=== PATIENT | female | born 1950 | race Caucasian/White ===

== ENCOUNTER 2023-02-12 20:53 | Inpatient (IN) | payer MEDICARE, OTHER ==
[~2023-02-12] VITALS: Ht 170.1 cm; Wt 64.5 kg
[2023-02-12] MEDS ORDERED: NS IV 1000 ML 1,000 ML IV STA (21:09)
[2023-02-12] MEDS ORDERED: dilTIAZem INJ 25 MG/5 ML VIAL IVP STA (21:09)
[2023-02-12 21:11] LABS: BASOPHILS % (AUTO) 1 % (0-10); EOSINOPHILS # (AUTO) 0.4 10^3/uL (0.0-0.3); EOSINOPHILS % (AUTO) 4 % (0-10); HEMATOCRIT 44 % (35-52); HEMOGLOBIN 14.4 g/dL (11.5-16.0); LYMPHOCYTES # (AUTO) 2.3 10^3/uL (1.0-4.0); LYMPHOCYTES % (AUTO) 28 % (12-44); MEAN CORPUSCULAR HEMOGLOBIN 31 pg (25-34); MEAN CORPUSCULAR HGB CONC 32 g/dL (32-36); MEAN CORPUSCULAR VOLUME 95 fL (80-99); MEAN PLATELET VOLUME 9.3 fL (9.0-12.2); MONOCYTES # (AUTO) 0.7 10^3/uL (0.0-1.0); MONOCYTES % (AUTO) 8 % (0-12); NEUTROPHILS # (AUTO) 4.8 10^3/uL (1.8-7.8); NEUTROPHILS % (AUTO) 59 % (42-75); PLATELET COUNT 355 10^3/uL (130-400); WHITE BLOOD COUNT 8.2 10^3/uL (4.3-11.0)
[2023-02-12] MEDS ORDERED: ENOXAPARIN 80 MG/0.8 ML SYRINGE SC STA (21:30)
[2023-02-12] MEDS ORDERED: dilTIAZem IV FOR DRIP 125 MG in NS (IVPB) 100 ML 100 ML IV STA (21:30)
--- NOTE | 2023-02-12 21:30 | ED Cardiac General ---
History of Present Illness General Chief Complaint: Cardiac/General Problems Stated Complaint: HEART PALPS Source: patient History of Present Illness Date Seen by Provider: Feb 12, 2023 Time Seen by Provider: 20:55 Initial Comments 72-year-old female presenting with complaints of heart palpitations. She states that approximately a month ago around January 12 she had received a fourth COVID shot. Approximately 2 weeks after that she started having heart palpitations an d shortness of breath. She has been seen at the [facility] and they did do thyroid studies that were normal. They had not caught anything on heart tracings. She had symptoms started up again tonight and she is still waiting to hear on follow-up with cardiology. Timing/Duration: other (intermittent over the last 10 to 14 days) Severity: moderate Activities at Onset: none Prior CP/Workup: no prior cardiac workup NTG SL NETWORK SYSTEMS ADMINISTRATOR: No ASA po NETWORK SYSTEMS ADMINISTRATOR: No Associated Systoms: No Chest Pain, No Cough, No Diaphoresis, No Fever/Chills, No Headaches, No Loss of Appetite, No Malaise, No Nausea/Vomiting, No Rash, No Seizure, No Shortness of Air, No Syncope, No Weakness Allergies and Home Medications Allergies Coded Allergies: loperamide (Verified Allergy, Mild, Rash, 02/12/23) Patient Home Medication List Home Medication List Reviewed: Yes Review of Systems Review of Systems Constitutional: chills; No fever EENTM: No Symptoms Reported Respiratory: No Symptoms Reported Cardiovascular: See HPI, Irregular Heart Rate, Palpitations Gastrointestinal: Denies Nausea, Denies Vomiting Genitourinary: No Symptoms Reported Musculoskeletal: no symptoms reported Skin: no symptoms reported Psychiatric/Neurological: No Symptoms Reported Physical Exam Vital Signs Vital Signs - First Documented 02/12/23 21:19 Pulse 161 B/P (MAP) 167/92 Capillary Refill : Height, Weight, BMI Height: '" Weight: lbs. oz. kg; BMI Method: General Appearance: No Apparent Distress, WD/WN Respiratory: Chest Non Tender, Lungs Clear, Normal Breath Sounds, No Accessory Muscle Use, No Respiratory Distress Cardiovascular: No Murmur, Normal Peripheral Pulses, Irregularly Irregular, Tachycardia Gastrointestinal: Normal Bowel Sounds, No Pulsatile Mass, Non Tender, Soft Rectal: Deferred Extremity: Normal Capillary Refill, Normal Inspection, No Pedal Edema Neurologic/Psychiatric: Alert, Oriented x3 Skin: Normal Color, Warm/Dry Progress/Results/Core Measures Results/Orders Lab Results Laboratory Tests Test 02/12/23 21:02 Range/Units White Blood Count 8.2 4.3-11.0 10^3/uL Red Blood Count 4.67 3.80-5.11 10^6/uL Hemoglobin 14.4 11.5-16.0 g/dL Hematocrit 44 35-52 % Mean Corpuscular Volume 95 80-99 fL Mean Corpuscular Hemoglobin 31 25-34 pg Mean Corpuscular Hemoglobin Concent 32 32-36 g/dL Red Cell Distribution Width 13.1 10.0-14.5 % Platelet Count 355 130-400 10^3/uL Mean Platelet Volume 9.3 9.0-12.2 fL Immature Granulocyte % (Auto) 0 % Neutrophils (%) (Auto) 59 42-75 % Lymphocytes (%) (Auto) 28 12-44 % Monocytes (%) (Auto) 8 0-12 % Eosinophils (%) (Auto) 4 0-10 % Basophils (%) (Auto) 1 0-10 % Neutrophils # (Auto) 4.8 1.8-7.8 10^3/uL Lymphocytes # (Auto) 2.3 1.0-4.0 10^3/uL Monocytes # (Auto) 0.7 0.0-1.0 10^3/uL Eosinophils # (Auto) 0.4 H 0.0-0.3 10^3/uL Basophils # (Auto) 0.0 0.0-0.1 10^3/uL Immature Granulocyte # (Auto) 0.0 0.0-0.1 10^3/uL Prothrombin Time 12.2 12.2-14.7 SEC INR Comment 0.9 0.8-1.4 Activated Partial Thromboplast Time 24 24-35 SEC Sodium Level 142 135-145 MMOL/L Potassium Level 3.5 L 3.6-5.0 MMOL/L Chloride Level 102 98-107 MMOL/L Carbon Dioxide Level 30 21-32 MMOL/L Anion Gap 10 5-14 MMOL/L Blood Urea Nitrogen 13 7-18 MG/DL Creatinine 0.68 0.60-1.30 MG/DL Estimat Glomerular Filtration Rate 94 BUN/Creatinine Ratio 19 Glucose Level 117 H 70-105 MG/DL Calcium Level 9.7 8.5-10.1 MG/DL Corrected Calcium 9.7 8.5-10.1 MG/DL Magnesium Level 2.2 1.6-2.4 MG/DL Total Bilirubin 0.6 0.1-1.0 MG/DL Aspartate Amino Transf (AST/SGOT) 19 5-34 U/L Alanine Aminotransferase (ALT/SGPT) 17 0-55 U/L Alkaline Phosphatase 137 H 40-136 U/L Troponin I < 0.30 <0.30 NG/ML Pro-B-Type Natriuretic Peptide 355.7 H <125.0 PG/ML Total Protein 8.3 H 6.4-8.2 GM/DL Albumin 4.0 3.2-4.5 GM/DL Lipase 30 8-78 U/L My Orders Orders - KIRSTEN BAGLEY MD Cbc And Automated Diff (02/12/23 20:58) Magnesium (02/12/23 20:58) Ekg Tracing (02/12/23 20:58) Comprehensive Metabolic Panel (02/12/23 20:58) Protime With Inr (02/12/23 20:58) Partial Thromboplastin Time (02/12/23 20:58) O2 (02/12/23 20:58) Monitor-Rhythm Ecg Trace Only (02/12/23 20:58) Ed Iv/Invasive Line Start (02/12/23 20:58) Lipase (02/12/23 20:58) Troponin I Fs (02/12/23 20:58) Probnp Fs (02/12/23 20:58) Ns Iv 1000 Ml (Ns Iv 1000 Ml) (02/12/23 21:09) Diltiazem Injection (Diltiazem Injection (02/12/23 21:09) Ns (Ivpb) 100 Ml (S... W/Diltiazem Iv Fo (02/12/23 21:30) Ekg Tracing (02/12/23 21:30) Enoxaparin Injection (Enoxaparin Injecti (02/12/23 21:30) Diltiazem Drip Pre-Mix (Diltiazem Drip P (02/12/23 21:39) Ed Admission (Communication) (02/12/23 22:01) Chest 1 View Ap/Pa Only (02/12/23 22:18) Vital Signs/I&O 02/12/23 02/12/2323 21:19 21:43 21:58 Pulse 161 141 150 B/P (MAP) 167/92 148/79 149/77 Blood Pressure Mean: 117 Progress Progress Note #1: Progress Note Differential diagnosis includes atrial fibrillation, dehydration, electrolyte imbalance, myocardial infarction, congestive heart failure, cardiac arrhythmia. Establish peripheral IV access and send labs for complete blood count, comprehensive metabolic profile, magnesium, lipase, troponin, proBNP, pro time, INR, PTT. Urinalysis to look for signs of infection and dehydration. Electrocardiogram to look for signs of ischemia. Placed on cardiac telemetry monitoring my initial interpretation shows narrow complex tachycardia with irregularity and 150 to 160 bpm. Ordered diltiazem 10 mg IV bolus to try and help with tachycardia and see if this might be atrial fibrillation. Ordered normal saline 1 L IV fluid bolus for hydration. Progress Note #2: Time: 21:33 Progress Note After the 10 mg IV bolus of diltiazem her heart rate did slow to around 100 bpm but showed more of an irregular rhythm concerning for atrial flutter. Her blood pressure remained stable and she was not having any hypotension. Her complete blood count did not show any acute process. Her comprehensive metabolic profile did not show any acute electrolyte significant abnormality. She had a negative troponin less than 0.3. She also had a normal proBNP level. Magnesium was nor mal at 2.1. Her coagulation factors were normal. A diltiazem drip was ordered to try and help control her heart rate and rhythm better. Will check with the patient and spouse about admission to [place]. Anticipate continuing the diltiazem until she is in a steady sinus rhythm. Have cardiology evaluate her for her cardiac arrhythmia. Ordered Lovenox 1 mg/kg or 70 mg SC x 1 for anticoagulation with her having atrial flutter at times 2200 discussed with [facility] resident Dr. Flores. She is on-call for Dr. Rivas for the [facility] hospitalist. Reviewed patient presentation and history of not having any prior cardiac problems. Now exhibiting some arrhythmia and at times showed some atrial flutter. She did have rapid ventricular response which had improved with diltiazem and is currently on a diltiazem drip. She remains hemodynamically stable and has not been hypotensive. Other labs did not show any acute electrolyte abnormality or anemia to indicate a cause for her arrhythmia and atrial flutter. She was improved with the diltiazem drip and tolerating it well. She was accepted as an admission to the ICU with her being on the diltiazem drip. We will consult cardiology in am for her arrhythmia and episodes of atrial flutter. Initial ECG Impression Date: Feb 12, 2023 Initial ECG Impression Time: 21:02 Initial ECG Rate: 156 Initial ECG Rhythm: A Fib/Flutter Initial ECG Comparisson: No Previous ECG Available Comment My initial interpretation and review the electrocardiogram shows atrial flutter with heart rate of 156 bpm. Short MI interval of 97 ms. She has some ST depression but no ST elevation. QT interval 265 ms with a QTc interval 353 ms. There is no prior tracing available for comparison. EKG : EKG Time: 21:26 Rate: 93 Rhythm: A Fib/Flutter ECG Comparisson: Changed (Improved heart rate compared to the tracing from 210 tonight) Comment On my initial interpretation and review the electrocardiogram shows atrial flutter with irregular heartbeat and 93 bpm. MI interval [address] elevation. QT interval 318 ms with a QTc interval 396 ms. She has improved heart rate from her initial tracing at 2102 tonight. Diagnostic Imaging Diagonstic Imaging: Xray Plain Films/CT/US/NM/MRI: chest Comments My personal review and interpretation of the 1 view chest x-ray she has no acute infiltrate or effusion. Reviewed: Reviewed by Me Critical Care Note Critical Care Total Time (minutes) 45 minutes Progress I spent at least 45 minutes of critical care time with the patient. Time excludes separately billable procedures. Time was spent obtaining history from the patient and spouse, ordering tests and reviewing results, ordering interventions and reviewing response, discussion with consultants, documentation in the chart. Patient was at risk of cardiovascular compromise and collapse due to her cardiac arrhythmia and required my immediate direct care and intervention to help stabilize her condition and arrange for transfer to higher level of care. Departure Communication (Admissions) Time/Spoke to Admitting Phy: 22:00 2200 discussed with [facility] resident Dr. Flores. She is on-call for Dr. Rivas for the [facility] hospitalist. Reviewed patient presentation and history of not having any prior cardiac problems. Now exhibiting some arrhythmia and at times showed some atrial flutter. She did have rapid ventricular response which had improved with diltiazem and is currently on a diltiazem drip. She remains hemodynamically stable and has not been hypotensive. Other labs did not show any acute electrolyte abnormality or anemia to indicate a cause for her arrhyt hmia and atrial flutter. She was improved with the diltiazem drip and tolerating it well. She was accepted as an admission to the ICU with her being on the diltiazem drip. We will consult cardiology in am for her arrhythmia and episodes of atrial flutter. Impression Primary Impression: Atrial fibrillation with rapid ventricular response Disposition: 30 STILL A PATIENT Condition: Critical Admissions Decision to Admit Reason: Admit from ER (General) Decision to Admit/Date: Feb 12, 2023 Time/Decision to Admit Time: 22:00 KIRSTEN BAGLEY MD Feb 12, 2023 21:30
[2023-02-12 21:35] LABS: CHLORIDE 102 MMOL/L (98-107); POTASSIUM 3.5 MMOL/L (3.6-5.0); SODIUM 142 MMOL/L (135-145)
[2023-02-12 21:36] LABS: ALANINE AMINOTRANSFERASE 17 U/L (0-55); ALKALINE PHOSPHATASE 137 U/L (40-136); BILIRUBIN,TOTAL 0.6 MG/DL (0.1-1.0); BUN/CREATININE RATIO 19; CALCIUM 9.7 MG/DL (8.5-10.1); CARBON DIOXIDE 30 MMOL/L (21-32); CREATININE SERUM 0.68 MG/DL (0.60-1.30); GFR ESTIMATED 94; GLUCOSE 117 MG/DL (70-105); LIPASE 30 U/L (8-78); MAGNESIUM 2.2 MG/DL (1.6-2.4); TOTAL PROTEIN 8.3 GM/DL (6.4-8.2)
[2023-02-12] MEDS ORDERED: dilTIAZem DRIP PRE-MIX 125 ML IV ONE (21:39)
[2023-02-12 21:40] LABS: INR 0.9 (0.8-1.4); PROTHROMBIN TIME PATIENT 12.2 SEC (12.2-14.7)
[2023-02-12] MEDS ORDERED: diphenhydrAMINE 25 MG TABLET PO PRN (23:45)
[2023-02-12] MEDS ORDERED: dilTIAZem DRIP 125 MG/125 ML DRIP IV SCH (23:45)
[2023-02-12] MEDS ORDERED: NS IV 500 ML 500 ML IV PRN (23:45)
[2023-02-12] MEDS ORDERED: ACETAMINOPHEN 325 MG TABLET PO PRN (23:45)
[2023-02-12] MEDS ORDERED: LACTULOSE SYRUP 10GM/15ML 30ML UDC PO PRN (23:45)
[2023-02-12] MEDS ORDERED: BISACODYL 10 MG SUPPOSITORY PR PRN (23:45)
[2023-02-12] MEDS ORDERED: ANTACID SUSPENSION 30 ML UDC PO PRN (23:45)
[2023-02-12] MEDS ORDERED: dilTIAZem IV FOR DRIP 125 MG in NS (IVPB) 100 ML 100 ML IV SCH (23:45)
[2023-02-12] MEDS ORDERED: ONDANSETRON INJECTION 4 MG/2 ML (SDV) IV PRN (23:45)
[2023-02-12] MEDS ORDERED: MELATONIN 3 MG TABLET PO PRN (23:45)
[2023-02-12] MEDS ORDERED: diphenhydrAMINE INJ 50 MG/ML VIAL IVP PRN (23:45)
[2023-02-12] MEDS ORDERED: ONDANSETRON 4 MG ORAL DISSOLVE TABLET PO PRN (23:45)
[2023-02-13 00:45] VITALS: BP 91/56
[2023-02-13 04:28] LABS: BASOPHILS % (AUTO) 0 % (0-10); EOSINOPHILS # (AUTO) 0.2 10^3/uL (0.0-0.3); EOSINOPHILS % (AUTO) 3 % (0-10); HEMATOCRIT 40 % (35-52); LYMPHOCYTES # (AUTO) 1.6 10^3/uL (1.0-4.0); LYMPHOCYTES % (AUTO) 23 % (12-44); MEAN CORPUSCULAR HEMOGLOBIN 31 pg (25-34); MEAN CORPUSCULAR HGB CONC 33 g/dL (32-36); MEAN CORPUSCULAR VOLUME 93 fL (80-99); MEAN PLATELET VOLUME 9.2 fL (9.0-12.2); MONOCYTES # (AUTO) 0.6 10^3/uL (0.0-1.0); MONOCYTES % (AUTO) 8 % (0-12); NEUTROPHILS # (AUTO) 4.5 10^3/uL (1.8-7.8); NEUTROPHILS % (AUTO) 66 % (42-75); PLATELET COUNT 321 10^3/uL (130-400); WHITE BLOOD COUNT 6.9 10^3/uL (4.3-11.0)
[2023-02-13 04:37] LABS: ALBUMIN 3.6 GM/DL (3.2-4.5)
[2023-02-13 04:38] LABS: POTASSIUM 3.7 MMOL/L (3.6-5.0)
[2023-02-13 04:39] LABS: CALCIUM 8.7 MG/DL (8.5-10.1)
[2023-02-13 04:40] LABS: TOTAL PROTEIN 6.9 GM/DL (6.4-8.2)
[2023-02-13 04:42] LABS: BILIRUBIN,TOTAL 0.8 MG/DL (0.1-1.0)
[2023-02-13 04:43] LABS: PHOSPHORUS 3.3 MG/DL (2.3-4.7)
[2023-02-13 04:44] LABS: CREATININE SERUM 0.72 MG/DL (0.60-1.30)
[2023-02-13 04:47] LABS: MAGNESIUM 1.9 MG/DL (1.6-2.4)
[2023-02-13] MEDS: POTASSIUM CL 10MEQ/50ML IVPB 50 ML IV SCH ×3 (04:53→06:00)
[2023-02-13] MEDS: POTASSIUM CHLORIDE 20 MEQ TABLET PO SCH (04:53)
[2023-02-13] MEDS: MAGNESIUM 1 GM/100 ML IVPB 100 ML IV SCH ×3 (04:53→08:16)
--- NOTE | 2023-02-13 07:30 | Diagnostic Imaging Report ---
INDICATION: palpitations TECHNIQUE: Single view chest 10:15 PM CORRELATION STUDY: None FINDINGS: The heart size, mediastinal configuration and pulmonary vascularity are within normal limits. Lung crum hyperinflated but overall clear. IMPRESSION: 1. Negative appearing single view chest. Dictated by: Dictated on workstation # [id number]
[2023-02-13] MEDS ORDERED: meTOprolol TARTRATE (IR) 50 MG TABLET PO ONE (08:15)
[2023-02-13] MEDS ORDERED: meTOprolol INJECTION 5 MG/5 ML VIAL IV ONE (08:15)
--- NOTE | 2023-02-13 08:30 | Consultation-Cardiology ---
HPI-Cardiology Cardiology Consultation Date of Consultation 02/13/23 Date of Admission Time Seen by Provider: 08:27 Indication: Palpitation HPI 72-year-old lady with no significant past medical history has been having recurrent palpitation for the past 2 to 3 weeks. On and off lasting for few minutes then it became worse. Patient was seen at the urgent care last week then came into the emergency room yesterday and she was noted to be tachycardic with questionable atrial flutter. She denied any chest pain but has been having frequent episodes of palpitation on and off. She denied any smoking no significant caffeine use Home Medications & Allergies Allergies: Coded Allergies: loperamide (Verified Allergy, Mild, Rash, 02/12/23) Home Medication List Reviewed: Yes [id number] Hx Patient Social History Marital Status: Employed/Student: retired Smoking Status: Never a Smoker Alcohol Use?: No Past Medical History Discussed below Family Medical History Significant Family History: No Pertinent Family Hx Review of Systems-General Review of Systems Constitutional: chills; No fever EENTM: see HPI, no symptoms reported Respiratory: no symptoms reported, see HPI Cardiovascular: see HPI; No chest pain, No edema, No Hx of Intervention; palpitations; No syncope, No vascular heart diseas, No other Gastrointestinal: no symptoms reported, see HPI Genitourinary: no symptoms reported, see HPI Musculoskeletal: no symptoms reported Skin: no symptoms reported Psychiatric/Neurological: No Symptoms Reported Reviewed Test Results Reviewed Test Results Lab Laboratory Tests Test 02/12/23 21:02 02/13/23 04:05 Range/Units White Blood Count 8.2 6.9 4.3-11.0 10^3/uL Red Blood Count 4.67 4.23 3.80-5.11 10^6/uL Hemoglobin 14.4 13.0 11.5-16.0 g/dL Hematocrit 44 40 35-52 % Mean Corpuscular Volume 95 93 80-99 fL Mean Corpuscular Hemoglobin 31 31 25-34 pg Mean Corpuscular Hemoglobin Concent 32 33 32-36 g/dL Red Cell Distribution Width 13.1 13.0 10.0-14.5 % Platelet Count 355 321 130-400 10^3/uL Mean Platelet Volume 9.3 9.2 9.0-12.2 fL Immature Granulocyte % (Auto) 0 0 % Neutrophils (%) (Auto) 59 66 42-75 % Lymphocytes (%) (Auto) 28 23 12-44 % Monocytes (%) (Auto) 8 8 0-12 % Eosinophils (%) (Auto) 4 3 0-10 % Basophils (%) (Auto) 1 0 0-10 % Neutrophils # (Auto) 4.8 4.5 1.8-7.8 10^3/uL Lymphocytes # (Auto) 2.3 1.6 1.0-4.0 10^3/uL Monocytes # (Auto) 0.7 0.6 0.0-1.0 10^3/uL Eosinophils # (Auto) 0.4 H 0.2 0.0-0.3 10^3/uL Basophils # (Auto) 0.0 0.0 0.0-0.1 10^3/uL Immature Granulocyte # (Auto) 0.0 0.0 0.0-0.1 10^3/uL Prothrombin Time 12.2 12.2-14.7 SEC INR Comment 0.9 0.8-1.4 Activated Partial Thromboplast Time 24 24-35 SEC Sodium Level 142 141 135-145 MMOL/L Potassium Level 3.5 L 3.7 3.6-5.0 MMOL/L Chloride Level 102 106 98-107 MMOL/L Carbon Dioxide Level 30 27 21-32 MMOL/L Anion Gap 10 8 5-14 MMOL/L Blood Urea Nitrogen 13 12 7-18 MG/DL Creatinine 0.68 0.72 0.60-1.30 MG/DL Estimat Glomerular Filtration Rate 94 90 BUN/Creatinine Ratio 19 17 Glucose Level 117 H 108 H 70-105 MG/DL Calcium Level 9.7 8.7 8.5-10.1 MG/DL Corrected Calcium 9.7 9.0 8.5-10.1 MG/DL Magnesium Level 2.2 1.9 1.6-2.4 MG/DL Total Bilirubin 0.6 0.8 0.1-1.0 MG/DL Aspartate Amino Transf (AST/SGOT) 19 18 5-34 U/L Alanine Aminotransferase (ALT/SGPT) 17 18 0-55 U/L Alkaline Phosphatase 137 H 104 40-136 U/L Troponin I < 0.30 <0.30 NG/ML Pro-B-Type Natriuretic Peptide 355.7 H <125.0 PG/ML Total Protein 8.3 H 6.9 6.4-8.2 GM/DL Albumin 4.0 3.6 3.2-4.5 GM/DL Lipase 30 8-78 U/L Phosphorus Level 3.3 2.3-4.7 MG/DL Physical Exam Physical Exam Vital Signs Vital Signs - First Documented Capillary Refill : Less Than 3 Seconds Height, Weight, BMI Height: '" Weight: lbs. oz. kg; 22.70 BMI Method: General Appearance: No Apparent Distress, WD/WN Eyes: Bilateral Eye Normal Inspection, Bilateral Eye PERRL, Bilateral Eye EOMI HEENT: PERRL/EOMI, TMs Normal, Normal ENT Inspection, Pharynx Normal, Moist Mucous Membranes Neck: Full Range of Motion, Normal Inspection, Non Tender, Supple, Carotid Bruit Respiratory: Chest Non Tender, Lungs Clear, Normal Breath Sounds, No Accessory Muscle Use, No Respiratory Distress Cardiovascular: Regular Rate, Rhythm, No Murmur, Normal Peripheral Pulses, Systolic Murmur, Tachycardia Gastrointestinal: Normal Bowel Sounds, No Pulsatile Mass, Non Tender, Soft Rectal: Deferred Back: Normal Inspection, No CVA Tenderness, No Vertebral Tenderness Extremity: Normal Capillary Refill, Normal Inspection, No Pedal Edema Neurologic/Psychiatric: Alert, Oriented x3 Skin: Normal Color, Warm/Dry Lymphatic: No Adenopathy A/P-Cardiology Admission Diagnosis Recurrent palpitation Paroxysmal atrial flutter Paroxysmal atrial tachycardia Assessment/Plan Recurrent palpitation, probably secondary to tachycardia, unknown etiology Paroxysmal atrial tachycardia, questionable paroxysmal atrial flutter. No signs of fibrillation. Maintained on Cardizem drip and heart rate is better still borderline tachycardic. I will switch the Cardizem to oral and start metoprolol 50 mg twice daily Evaluate 2D echo Continue on Lovenox for now. [id number] score 3. Patient will need to be on oral anticoagulation until atrial flutter and or atrial fibrillation are completely excluded Clinical Quality Measures AMI/AHF: ASA po Prior to arrival: VINNIE Shah MD Feb 13, 2023 08:30
[2023-02-13] MEDS: ENOXAPARIN 80 MG/0.8 ML SYRINGE SC SCH ×2 (09:07→21:12)
[2023-02-13] MEDS: dilTIAZem ER 120 MG CAPSULE PO SCH (09:07)
[2023-02-13] MEDS: meTOprolol TARTRATE (IR) 50 MG TABLET PO SCH ×2 (09:08→21:12)
[2023-02-13] MEDS: DOCUSATE SODIUM 100 MG CAPSULE PO SCH ×2 (09:10→19:37)
--- NOTE | 2023-02-13 09:51 | History & Physical-Hospitalist ---
TORIBIO LOZANO MD, RESIDENT 02/13/23 0951: History of Present Illness HPI/Chief Complaint CC: Palpitations Patient is a 72-year-old female with no past medical history who presented with palpitations. She states that her palpitations began approximately a month ago on January 12 when she had received her fourth COVID shot. She noted that she had felt ill for couple of days after receiving the shot and did have palpitations that lasted for couple of hours prior to resolving. Since then she would occasionally have episodes of palpitations that come and go. She denies any chest pain during these episodes. She did go to urgent care at 1 point whe re she had an EKG done which was normal. She did note that yesterday the palpitations started again and she was noting some shortness of breath with this thus she presented to the ED for further evaluations. She otherwise denies any other symptoms during this time. In the ED it was noted that patient was in atrial fibrillation with RVR requiring a diltiazem drip. Despite being on the drip, her rhythms did not remain consistent and thus she was transferred here for further management. Does not take any medications at home other than Flonase, B6 and vitamin D. She is a non-smoker, denies any alcohol or drug use. Source: patient Exam Limitations: no limitations Date Seen 02/13/23 Time Seen by a Provider: 07:40 Attending Physician Kathy Briceño Aprn PCP Admitting Physician: Maria Luz Rivas DO Attending Physician: Maria Luz Rivas DO Referring Physician Date of Admission Feb 12, 2023 at 23:23 Home Medications & Allergies Home Medications Reviewed patient Home Medication Reconciliation performed by pharmacy medication reconciliations surgery technician and/or nursing. Patients Allergies have been reviewed. Allergies Allergies Coded Allergies loperamide (Verified Allergy, Mild, Rash, 02/12/23) Past Lwqegxt-Dqajxn-Zsdwka Hx Patient Social History Marrital Status: Employed/Student: retired Tobacco Use?: No Smoking Status: Never a Smoker Smokeless Tobacco Frequency: Never a User Use of E-Cig and/or Vaping dev: No Substance use?: No Alcohol Use?: No Pt feels they are or have been: No Immunizations Up To Date First/Initial COVID19 Vaccinat: date ? Second COVID19 Vaccination Chintan: date ? Current Status status: No status: No Advance Directives: No Communicates: Verbally Primary Language: Zimbabwean Preferred Spoken Language: Zimbabwean Is interpretation needed?: No Implanted or Applied Medical D: None Family Medical History No Pertinent Family Hx Dad of stroke at age 52, hypertension in father Review of Systems Constitutional: No chills, No dizziness EENTM: No nose congestion Respiratory: No cough, No dyspnea on exertion, No short of breath Cardiovascular: No chest pain, No edema; palpitations Gastrointestinal: No abdominal pain, No constipation, No diarrhea, No nausea, No vomiting Genitourinary: No dysuria Musculoskeletal: No no symptoms reported Skin: No no symptoms reported Psychiatric/Neurological: Anxiety Physical Exam Physical Exam Vital Signs Vital Signs - First Documented Capillary Refill : Less Than 3 Seconds Height, Weight, BMI Height: '" Weight: lbs. oz. kg; 22.70 BMI Method: General Appearance: No Apparent Distress HEENT: Normal ENT Inspection, Pharynx Normal Neck: Full Range of Motion, Non Tender, Supple Respiratory: Chest Non Tender, Lungs Clear, Normal Breath Sounds, No Accessory Muscle Use, No Respiratory Distress Cardiovascular: No Edema, No Murmur, Irregularly Irregular, Tachycardia Gastrointestinal: Normal Bowel Sounds, Non Tender, Soft Extremity: No Pedal Edema Neurologic/Psychiatric: Alert, Oriented x3 Skin: Normal Color, Warm/Dry Results Results/Procedures Labs Laboratory Tests 02/12/23 21:02 02/13/23 04:05 Patient resulted labs reviewed. Imaging: Reviewed Imaging Films, Reviewed Imaging Report Imaging Chest x-ray (02/12/2023): IMPRESSION: 1. Negative appearing single view chest. Assessment/Plan Admission Diagnosis Patient is a 72-year-old female with no past medical history who presented with palpitations consistent with atrial fibrillation with RVR. Admission Status: Inpatient Order (span 2 midnights) Reason for Inpatient Admission: A-fib with RVR requiring diltiazem drip and thus ICU admission Diagnosis/Problems Diagnosis/Problems (1) Atrial fibrillation with rapid ventricular response Status: Acute Assessment & Plan: Patient is quite healthy and presented with atrial fibrillation with RVR. Is currently being managed on a diltiazem drip. Recent thyroid levels were normal. Lab work is within normal ranges. Plan: Cardiology consulted appreciate recommendations Continue diltiazem drip, planning to transition to oral today and have also started metoprolol Monitor on telemetry Once taken off the diltiazem drip, will move down to cardiac stepdown (2) Vitamin D deficiency Status: Chronic Assessment & Plan: Vitamin D deficiency, will continue home medication. Clinical Quality Measures AMI/AHF: ASA po Prior to arrival: Kiah MARIA LUZ RIVAS DO 02/13/231948: History of Present Illness HPI/Chief Complaint CC: AF RVR HPI: This is a 72yoWF clinic patient of [facility] who has no significant PMH who presented to the ER with chest pain and palpitations and found to have new onset AF RVR. Cardiology managing the AF and ECHO was ordered. Source: patient Exam Limitations: no limitations Past Kvfbblm-Agsxpu-Vssjgx Hx Patient Social History Marrital Status: Employed/Student: retired Smoking Status: Never a Smoker Review of Systems Constitutional: see HPI Cardiovascular: chest pain, palpitations Physical Exam Physical Exam General Appearance: No Apparent Distress, Chronically ill Eyes: Right Eye Normal Inspection, Right Eye PERRL HEENT: PERRL/EOMI, Normal ENT Inspection, Pharynx Normal, Moist Mucous Membranes Neck: Full Range of Motion, Normal Inspection, Non Tender Respiratory: Chest Non Tender, Lungs Clear, Normal Breath Sounds, No Accessory Muscle Use, No Respiratory Distress Cardiovascular: No Edema, No Gallop, No JVD, No Murmur, Normal Peripheral Pulses, Irregularly Irregular, Tachycardia Gastrointestinal: Normal Bowel Sounds, No Organomegaly, No Pulsatile Mass, Non Tender, Soft Back: Normal Inspection, No CVA Tenderness, No Vertebral Tenderness Extremity: Normal Capillary Refill, Normal Inspection, Normal Range of Motion, Non Tender, No Calf Tenderness, No Pedal Edema Neurologic/Psychiatric: Alert, Oriented x3, No Motor/Sensory Deficits, Normal Mood/Affect Skin: Normal Color, Warm/Dry Lymphatic: No Adenopathy Assessment/Plan Admission Diagnosis Assessment: New onset AF RVR Plan: OAC Rate control Admission Status: Inpatient Order (span 2 midnights) Reason for Inpatient Admission: AF RVR TORIBIO LOZANO MD, RESIDENT Feb 13, 2023 09:51 MARIA LUZ RIVAS DO Feb 13, 2023 19:49
--- NOTE | 2023-02-13 10:01 | Physical Therapy Evaluation ---
PT Evaluation-General Medical Diagnosis Admission Date Feb 12, 2023 at 23:23 Medical Diagnosis: A-fib with RVR Onset Date: Feb 12, 2023 Therapy Diagnosis Therapy Diagnosis: debility Precautions Precautions/Isolations: Standard Precautions Referral Physician: Evelyn Reason for Referral: Evaluation/Treatment Medical History Current History ER secondary to heart palpitations Reviewed History: Yes Social History Home: Single Level Current Living Status: Spouse Prior Prior Level of Function SCALE: Activities may be completed with or without assistive devices. 7-Befevbfznu-dluttyw completes the activity by him/herself with no assistance from a helper. 5-Set-up or Clean-up Assistance-helper sets up or cleans up; patient completes activity. [place] assists only prior to or following the activity. 4-Supervision or Touching Assistance-helper provides verbal cues and/or touching/steadying and/or contact guard assistance as patient completes activity. Assistance may be provided throughout the activity or intermittently. 3-Partial/Moderate Assistance-helper does LESS THAN HALF the effort. [place] lifts, holds or supports trunk or limbs, but provides less than half the effort. 2-Substantial/Maximal Assistance-helper does MORE THAN HALF the effort. [place] lifts or holds trunk or limbs and provides more than half the effort. 6-Snkydvkch-tsvixt does ALL the effort. Patient does none of the effort to complete the activity. Or, the assistance of 2 or more helpers is required for the patient to complete the activity. If activity was not attempted, code reason: 7-Patient Refused. 9-Not Applicable-not attempted and the patient did not perform the activity before the current illness, exacerbation or injury. 10-Not Attempted due to Environmental Limitations-(lack of equipment, weather restraints, etc.). 88-Not Attempted due to Medical Conditions or Safety Concerns. Bed Mobility: 6 Transfers (B,C,W/C): 6 Gait: 6 Stairs: 6 Indoor Mobility (Ambulation): Independent Stairs: Independent Prior Devices Use: None PT Evaluation-Current Subjective Patient agrees to therapy. Objective Patient Orientation: Normal For Age ROM/Strength ROM Lower Extremities bilateral LE WFL Strength Lower Extremities 4/5 grossly bilateral LE all planes Integumentary/Posture Bowel Incontinence: No Bladder Incontinence: No Posture WFL Neuromuscular (Tone, Coordination, Reflexes) grossly intact Sensory Vision: Functional Hearing: Functional Transfers Lying to Sitting/Side of Bed(Q: 6 Sit to Stand (QC): 6 Chair/Wmg-qi-Kxafq Xfer(QC): 6 Gait Mode of Locomotion: Walk Anticipated Mode of Locomotion: Walk Walk 10 feet (QC): 6 Gait Assistive Device: None Balance Sitting Static: Normal Sitting Dynamic: Normal Standing Static: Normal Standing Dynamic: Normal Assessment/Needs Patient is currently at independent LOF with all gross motor skills safely and does not require skilled PT intervention at this time. Rehab Potential: Fair PT Plan Treatment/Plan Treatment Plan: Discontinue PT Treatment Duration: Feb 12, 2023 Frequency: 1 time per week Estimated Hrs Per Day: .25 hour per day Patient and/or Family Agrees t: Yes Time Time In: 915 Time Out: 924 DATE: Feb 13, 2023 Total Billed Treatment Time: 9 Total Billed Treatment 1 visit EVLowC 9 min AUREA ARREAGA PT Feb 13, 2023 10:01
--- NOTE | 2023-02-13 10:10 | Occupational Therapy Eval ---
OT Evaluation-General/PLF Medical Diagnosis Admission Date Feb 12, 2023 at 23:23 Medical Diagnosis: A-fib with RVR Onset Date: Feb 12, 2023 Therapy Diagnosis Therapy Diagnosis: weakness Precautions Precautions/Isolations: Standard Precautions Referral Physician: Evelyn Patricia Reason: Evaluation/Treatment Medical History Additional Medical History 72-year-old female with no past medical history who presented with palpitations. She states that her palpitations began approximately a month ago on January 12 when she had received her fourth COVID shot. She noted that she had felt ill for couple of days after receiving the shot and did have pal pitations that lasted for couple of hours prior to resolving. Since then she would occasionally have episodes of palpitations that come and go. She denies any chest pain during these episodes. She did go to urgent care at 1 point where she had an EKG done which was normal. She did note that yesterday the palpitations started again and she was noting some shortness of breath with this thus she presented to the ED for further evaluations. She otherwise denies any other symptoms during this time. In the ED it was noted that patient was in atrial fibrillation with RVR requiring a diltiazem drip. Despite being on the d rip, her rhythms did not remain consistent and thus she was transferred here for further management. Current History NO current c/o or issues, Reviewed History: Yes Social History Home: Single Level Current Living Status: Spouse Entry Into Home: Stairs With Railing ADL-Prior Level of Function SCALE: Activities may be completed with or without assistive devices. 0-Rjmcpfbrcl-fstfcbv completes the activity by him/herself with no assistance from a helper. 5-Set-up or Clean-up Assistance-helper sets up or cleans up; patient completes activity. [place] assists only prior to or following the activity. 4-Supervision or Touching Assistance-helper provides verbal cues and/or touching/steadying and/or contact guard assistance as patient completes activity. Assistance may be provided throughout the activity or intermittently. 3-Partial/Moderate Assistance-helper does LESS THAN HALF the effort. [place] lifts, holds or supports trunk or limbs, but provides less than half the effort. 2-Substantial/Maximal Assistance-helper does MORE THAN HALF the effort. [place] lifts or holds trunk or limbs and provides more than half the effort. 3-Zsmbdkiju-opefny does ALL the effort. Patient does none of the effort to complete the activity. Or, the assistance of 2 or more helpers is required for the patient to complete the activity. If activity was not attempted, code reason: 7-Patient Refused. 9-Not Applicable-not attempted and the patient did not perform the activity before the current illness, exacerbation or injury. 10-Not Attempted due to Environmental Limitations-(lack of equipment, weather restraints, etc.). 88-Not Attempted due to Medical Conditions or Safety Concerns. Self Care: Independent Functional Cognition: Independent Drive Self: Yes OT Current Status Subjective Preferred name DALLIN Pain Numeric Pain Scale: 0-No Pain Mental Status/Objective Patient Orientation: Person, Place, Time, Situation Attachments: Telemetry Current Upper Extremity ROM BUE WFLs Upper Extremity Coordination BUE WLS for [facility] Upper Extremity Sensation intact Upper Extremity Strength +4/5 ADL-Treatment Eating (QC): 7 Oral Hygiene (QC): 5 (set up) Shower/Bathe Self (QC): 7 Upper Body Dressing (QC): 5 Lower Body Dressing (QC): 5 On/Off Footwear (QC): 5 Toileting Hygiene (QC): 5 Education OT Patient Education: Modified ADL techniques, Progress toward Goal/Update tx plan, Purpose of tx/functional activities, Reviewed precautions, Rehab process, Safety issues, Transfer techniques Teaching Recipient: Patient Teaching Methods: Demonstration, Discussion Response to Teaching: Return Demonstration OT Mcc Goals Cross Tie Cutter Goals 1=Demonstrate adherence to instructed precautions during ADL tasks. 2=Patient will verbalize/demonstrate understanding of assistive devices/modifications for ADL. 3=Patient will improve strength/tolerance for activity to enable patient to perform ADL's. OT Education/Plan Problem List/Assessment Assessment: No Skilled OT Needs ID'd Discharge Recommendations Plan/Recommendations: Discontinue OT Treatment Plan/Plan of Care Patient would benefit from OT for education, treatment and training to promote independence in ADL's, mobility, safety and/or upper extremity function for ADL's. Plan of Care: OTHER (EVAL ONLY) Treatment Duration: Feb 13, 2023 Frequency: 1 time per week Estimated Hrs Per Day: .25 hour per day Agreement: Yes Rehab Potential: Fair Time Start Time: 09:15 Stop Time: 09:25 DATE: Feb 13, 2023 Total Time Billed (hr/min): 10 Billed Treatment Time EVL 10 min NATE MUÑOZ OT Feb 13, 2023 10:09
--- NOTE | 2023-02-13 10:43 | Tele-ICU Progress Note ---
Subjective Date Seen by a Provider: Feb 13, 2023 Time Seen by a Provider: 09:20 Subjective/Events-last exam (Tele-ICU Physician , Progress Note ) Service provided via interactive audio and video telecommunications E-CARE system to a patient admitted to ICU bed in [facility]. Patient is seen today due to persistent need of ICU care Available chart/ vitals / labs / Images reviewed Video assessment done using teleICU camera, rest of exam as per RN She is a 72-year-old female with no significant past medical history presented to the emergency room with a complaint of palpitations on and off for about 2 to 3 weeks. And in the ER she is found to have a atrial flutter with rapid ventricular rate for which she was started on Cardizem drip. Today her heart rate came down to low 100s occasionally dipping into normal range. Cardiology consultation was obtained and she was started on oral Cardizem as well as metoprolol and subsequently Cardizem drip is stopped. She denied any chest pain . No history of hypertension tobacco or alcohol abuse present. Impression 1. Atrial for flutter with rapid ventricular rate causing palpitations. Recommendations. 1. Cardiology consultation has been requested and seen by the education liaison. Management of atrial flutter per cardiology 2. Lovenox subcu for now for stroke prophylaxis 3. Echocardiogram today. Coordination of care with primary care physician and bedside consultants. I have reviewed the case with bedside STOCK DEALER. I am remotely monitoring this patient from Tele icu station in [place]. I am unable to do the bedside exam, and history/physical and pertinent information is taken from other notes in the computer and bedside staff. Certain portions of this document may have been dictated utilizing voice recognition technology such as [employer]. Inherent to this technology, typographical and grammatical errors may exist. As much as I am diligent to identify and correct to these mistakes, some errors may remain in the document. Critical care time devoted to this patient today is approximately is 15 minutes.-- Sepsis Event Evaluation Height, Weight, BMI Height: '" Weight: lbs. oz. kg; 22.70 BMI Method: Exam Exam Patient acknowledged, consented, and participated in this virtual visit which was conducted using real time audio/video Vital Signs Date Time Temp Pulse Resp B/P (MAP) Pulse Ox O2 Delivery O2 Flow Rate FiO2 02/13/23 09:00 93 114/78 (90) 98 Room Air 02/13/23 08:30 37.0 02/13/23 08:00 102 15 138/80 (99) 99 Room Air 02/13/23 08:00 96 Room Air 02/13/23 07:06 66 02/13/23 07:00 82 127/71 (89) 97 Room Air 02/13/23 06:00 92 27 105/82 (90) 97 Room Air 02/13/23 05:00 93 17 137/87 (97) 96 Room Air 02/13/23 04:00 97 Room Air 02/13/23 04:00 94 39 116/75 (90) 95 Room Air 02/13/23 04:00 36.6 02/13/23 03:00 87 13 129/69 (93) 96 Room Air 02/13/23 02:00 76 18 109/68 (80) 94 Room Air 02/13/23 01:30 86 16 114/75 (85) 96 Room Air 02/13/23 01:15 94 16 128/76 (89) 97 Room Air 02/13/23 01:00 84 02/13/23 01:00 90 15 111/59 (69) 97 Room Air 02/13/23 00:45 0 19 91/56 (63) 94 Room Air 02/13/23 00:45 85 91/56 02/13/23 00:30 90 16 126/71 (92) 96 Room Air 02/13/23 00:15 96 36 142/77 (93) 93 Room Air 02/13/23 00:00 97 25 131/77 (97) 95 Room Air 02/13/23 00:00 36.6 02/12/23 23:45 102 140/79 (102) 97 Room Air 02/12/23 23:40 100 153/84 02/12/23 23:36 146 02/12/23 23:32 98 153/84 (104) Room Air 02/12/23 23:25 98 Room Air 02/12/23 22:35 36.5 144 22 146/106 97 Room Air 02/12/23 22:30 144 22 146/106 (119) 97 Room Air 02/12/23 22:15 108 21 142/77 (98) 97 Room Air 02/12/23 22:00 143 20 149/77 (101) 98 Room Air 02/12/23 21:58 150 149/77 02/12/23 21:45 140 21 148/79 (102) 97 Room Air 02/12/23 21:43 141 148/79 02/12/23 21:30 149 21 133/75 (94) 98 Room Air 02/12/23 21:19 161 167/92 02/12/23 21:15 154 20 167/92 (117) 99 Room Air 02/12/23 20:55 36.5 152 18 165/106 (125) 99 Room Air 02/12/23 20:55 36.5 152 18 165/106 (125) 99 Room Air I & O 02/13/23 06:59 Intake Total 1050 ml Output Total 600 ml Balance 450 ml Height & Weight Height: '" Weight: lbs. oz. kg; 22.70 BMI Method: General Appearance: No Apparent Distress HEENT: Normal ENT Inspection, Pharynx Normal Neck: Full Range of Motion, Non Tender, Supple Respiratory: Chest Non Tender, Lungs Clear, Normal Breath Sounds, No Accessory Muscle Use, No Respiratory Distress Cardiovascular: No Edema, No Murmur, Irregularly Irregular, Tachycardia Capillary Refill: Less Than 3 Seconds Extremity: No Pedal Edema Neurologic/Psychiatric: Alert, Oriented x3 Skin: Normal Color, Warm/Dry Lymphatic: No Adenopathy Results Lab Laboratory Tests 02/12/23 21:02 02/13/23 04:05 Assessment/Plan Assessment/Plan as above Critical Care: Critically Ill Patient Time spent with patient (mins): 15 LAISHA PUTNAM MD Feb 13, 2023 10:43
[2023-02-13] MEDS ORDERED: CHOL200059 PO (10:52)
[2023-02-13] MEDS ORDERED: FLUT9.9S NSEACH (10:52)
[2023-02-13] MEDS ORDERED: ACET-2267 PO (10:52)
[2023-02-13] MEDS ORDERED: PYRI50CA PO (10:52)
[2023-02-14 04:09] LABS: BASOPHILS # (AUTO) 0.1 10^3/uL (0.0-0.1); BASOPHILS % (AUTO) 1 % (0-10); EOSINOPHILS # (AUTO) 0.3 10^3/uL (0.0-0.3); EOSINOPHILS % (AUTO) 5 % (0-10); HEMATOCRIT 39 % (35-52); HEMOGLOBIN 12.9 g/dL (11.5-16.0); LYMPHOCYTES # (AUTO) 1.9 10^3/uL (1.0-4.0); LYMPHOCYTES % (AUTO) 29 % (12-44); MEAN CORPUSCULAR HEMOGLOBIN 31 pg (25-34); MEAN CORPUSCULAR HGB CONC 33 g/dL (32-36); MEAN CORPUSCULAR VOLUME 95 fL (80-99); MEAN PLATELET VOLUME 9.6 fL (9.0-12.2); MONOCYTES # (AUTO) 0.6 10^3/uL (0.0-1.0); MONOCYTES % (AUTO) 10 % (0-12); NEUTROPHILS # (AUTO) 3.5 10^3/uL (1.8-7.8); NEUTROPHILS % (AUTO) 55 % (42-75); PLATELET COUNT 344 10^3/uL (130-400); WHITE BLOOD COUNT 6.3 10^3/uL (4.3-11.0)
[2023-02-14 04:30] LABS: ALBUMIN 3.5 GM/DL (3.2-4.5); POTASSIUM 4.1 MMOL/L (3.6-5.0)
[2023-02-14 04:31] LABS: CALCIUM 8.7 MG/DL (8.5-10.1)
[2023-02-14 04:33] LABS: TOTAL PROTEIN 6.8 GM/DL (6.4-8.2)
[2023-02-14 04:34] LABS: BILIRUBIN,TOTAL 0.9 MG/DL (0.1-1.0)
[2023-02-14 04:36] LABS: CREATININE SERUM 0.79 MG/DL (0.60-1.30); PHOSPHORUS 3.7 MG/DL (2.3-4.7)
[2023-02-14 04:39] LABS: MAGNESIUM 2.1 MG/DL (1.6-2.4)
[2023-02-14] MEDS: MAGNESIUM 1 GM/100 ML IVPB 100 ML IV SCH (04:51)
[2023-02-14] MEDS: POTASSIUM CHLORIDE 20 MEQ TABLET PO SCH (04:51)
[2023-02-14] MEDS: POTASSIUM CL 10MEQ/50ML IVPB 50 ML IV SCH (04:51)
[2023-02-14] MEDS: meTOprolol TARTRATE (IR) 50 MG TABLET PO SCH (06:08)
[2023-02-14] MEDS: dilTIAZem ER 120 MG CAPSULE PO SCH (06:08)
--- NOTE | 2023-02-14 09:18 | Cardiology Progress Note ---
Subjective Date Seen by Provider: Feb 14, 2023 Time Seen by Provider: 09:17 Subjective/Events-last exam Patient was seen at bedside, sitting comfortably, no new complain Objective-Cardiology Exam Last Set of Vital Signs Vital Signs 02/14/23 02/14/23 02/14/23 00:00 04:04 07:00 Temp 36.4 Pulse 71 Resp 16 B/P (MAP) 113/83 (93) Pulse Ox 98 O2 Delivery Room Air I&O Intake and Output 02/13/23 23:59 Intake Total 2065 ml Output Total 1400 ml Balance 665 ml Intake Oral 1670 ml IV Total 395 ml Output Urine Total 1400 ml # Voids 3 # Bowel Movements 1 General: Alert, Oriented X3, Cooperative HEENT: Atraumatic, PERRLA Neck: Supple, No JVD, No Thyromegaly Lungs: Clear to Auscultation, Normal Air Movement Heart: Regular Rate, Normal S1, Normal S2, No Murmurs Abdomen: Normal Bowel Sounds, Soft, No Tenderness, No Hepatosplenomegaly, No Masses Extremities: No Clubbing, No Cyanosis, No Edema, Normal Pulses, No Tenderness/Swelling Skin: No Rashes, No Breakdown, No Significant Lesion Neuro: Normal Gait, Normal Speech, Strength at 5/5 X4 Ext, Normal Tone, Sensation Intact Psych/Mental Status: Mental Status NL, Mood NL Results Lab Laboratory Tests 02/14/23 03:28 A/P-Cardiology Admission Diagnosis Recurrent palpitation Paroxysmal atrial flutter Paroxysmal atrial tachycardia Assessment/Plan Recurrent palpitation, probably secondary to tachycardia Paroxysmal atrial tachycardia, questionable paroxysmal atrial flutter. No signs of fibrillation. Currently in sinus rhythm Maintained on Cardizem and metoprolol. Adding Eliquis and we will monitor as an outpatient. [id number] score 3. Patient will need to be on oral anticoagulation until atrial flutter and or atrial fibrillation are completely excluded VINNIE SAN MD Feb 14, 2023 09:18
[2023-02-14] MEDS ORDERED: APIXABAN 5 MG TABLET PO ONE (09:45)
--- NOTE | 2023-02-14 09:49 | Discharge Summary ---
TORIBIO LOZANO MD, RESIDENT 02/14/23 0949: Discharge Summary Hospital Course Problems/Dx: (1) Atrial fibrillation with rapid ventricular response Status: Acute Assessment & Plan: Patient is quite healthy and presented with atrial fibrillation with RVR. Is currently being managed on a diltiazem drip. Recent thyroid levels were normal. Lab work is within normal ranges. Plan: Cardiology consulted appreciate recommendations Transitioned to diltiazem and metoprolol yesterday, rates and rhythms regular Discharging today Will send home on Eliquis 5 mg twice daily Follow-up with cardiology in 2 weeks (2) Vitamin D deficiency Status: Chronic Assessment & Plan: Vitamin D deficiency, will continue home medication. Hospital Course Date of Admission: Feb 12, 2023 at 23:23 Admission Diagnosis : Family Physician/Provider: Kathy Briceño Aprn Date of Discharge: 02/14/23 Discharge Diagnosis: A-fib with RVR Hospital Course: Patient is a 72-year-old healthy female who presented with palpitations. She states this has been occurring on and off for the past month. Did note palpitations prior to coming into the ED as well as some shortness of breath thus causing her to be evaluated in the ED. In the ED it was noted that patient was in A-fib with RVR requiring a diltiazem drip. Despite being on the drip, her rhythms did not remain consistent and thus was transferred here for further management. In the ICU, she was eventually weaned off of the diltiazem drip and switch to oral diltiazem and metoprolol. We monitored for 1 day and noted that her rates and rhythms were well controlled. Per cardiology, she was cleared to go home as she was otherwise medically stable. We will send patient home with diltiazem, metoprolol and Eliquis. We will follow-up with cardiology in 2 weeks. Labs and Pending Lab Test: Laboratory Tests 02/14/23 03:28: White Blood Count 6.3, Red Blood Count 4.13, Hemoglobin 12.9, Hematocrit 39, Mean Corpuscular Volume 95, Mean Corpuscular Hemoglobin 31, Mean Corpuscular Hemoglobin Concent 33, Red Cell Distribution Width 13.2, Platelet Count 344, Mean Platelet Volume 9.6, Immature Granulocyte % (Auto) 0, Neutrophils (%) (Auto) 55, Lymphocytes (%) (Auto) 29, Monocytes (%) (Auto) 10, Eosinophils (%) (Auto) 5, Basophils (%) (Auto) 1, Neutrophils # (Auto) 3.5, Lymphocytes # (Auto) 1.9, Monocytes # (Auto) 0.6, Eosinophils # (Auto) 0.3, Basophils # (Auto) 0.1, Immature Granulocyte # (Auto) 0.0, Sodium Level 138, Potassium Level 4.1, Chloride Level 104, Carbon Dioxide Level 27, Anion Gap 7, Blood Urea Nitrogen 17, Creatinine 0.79, Estimat Glomerular Filtration Rate 80, BUN/Creatinine Ratio 22, Glucose Level 101, Calcium Level 8.7, Corrected Calcium 9.1, Phosphorus Level 3.7, Magnesium Level 2.1, Total Bilirubin 0.9, Aspartate Amino Transf (AST/SGOT) 16, Alanine Aminotransferase (ALT/SGPT) 17, Alkaline Phosphatase 99, Total Protein 6.8, Albumin 3.5 Microbiology 02/12/23 MRSA Screen - Final, Complete MRSA not isolated Home Meds Active Reported Tylenol Extra Strength (Acetaminophen) 500 Mg Tablet 1,000 Mg PO Q8H PRN Vitamin B-6 (Pyridoxine HCl) 50 Mg Capsule 50 Mg PO DAILY Vitamin D3 (Cholecalciferol (Vitamin D3)) 50 Mcg (2000 Unit) Tablet 50 Mcg PO DAILY Flonase Allergy Relief (Fluticasone Propionate) 50 Mcg/Actuation [place].susp 1 [place] NSEACH DAILY Assessment/Pt Instructions Please see electronic discharge instructions given to patient. Discharge Instructions Discharge Diet: No Restrictions Activity as Tolerated: Yes Discharge Physical Examination Vital Signs Vital Signs Date Time Temp Pulse Resp B/P (MAP) Pulse Ox O2 Delivery O2 Flow Rate FiO2 02/14/23 07:00 71 02/14/23 04:04 16 113/83 (93) 98 Room Air 02/14/23 00:00 36.4 General Appearance: No Apparent Distress HEENT: PERRL/EOMI, Normal ENT Inspection Respiratory: Chest Non Tender, Lungs Clear, Normal Breath Sounds, No Accessory Muscle Use, No Respiratory Distress Cardiovascular: Regular Rate, Rhythm, No Edema, No Murmur Gastrointestinal: Normal Bowel Sounds, Non Tender, Soft Extremity: No Pedal Edema Skin: Normal Color, Warm/Dry Neurologic/Psychiatric: Alert, Oriented x3 Allergies: Coded Allergies: loperamide (Verified Allergy, Mild, Rash, 02/12/23) Copy Copies To 1: Kathy Briceño Discharge Summary Date of Admission Feb 12, 2023 at 23:23 Date of Discharge Admission Diagnosis Assessment: New onset AF RVR Plan: OAC Rate control Discharge Diagnosis (1) Atrial fibrillation with rapid ventricular response Status: Acute Assessment & Plan: Patient is quite healthy and presented with atrial fibrillation with RVR. Is currently being managed on a diltiazem drip. Recent thyroid levels were normal. Lab work is within normal ranges. Plan: Cardiology consulted appreciate recommendations Continue diltiazem drip, planning to transition to oral today and have also started metoprolol Monitor on telemetry Once taken off the diltiazem drip, will move down to cardiac stepdown (2) Vitamin D deficiency Status: Chronic Assessment & Plan: Vitamin D deficiency, will continue home medication. Clinical Quality Measures AMI/AHF: ASA po Prior to arrival: No GAMALIEL CHEN DO 02/14/231947: Discharge Summary Hospital Course Was the Problem List Reviewed?: Yes Assessment/Pt Instructions I personally performed the watson portions of the visit, discussed case with resident and concur with resident documentation of history, physical exam, assessment and treatment plan unless otherwise noted. Discharge Planning: <30 minutes discharge planning Discharge Physical Examination General Appearance: No Apparent Distress, WD/WN Allergies: Coded Allergies: loperamide (Verified Allergy, Mild, Rash, 02/12/23) Copy Copies To 1: TORIBIO Franklin MD, RESIDENT Feb 14, 2023 09:49 GAMALIEL CHEN DO Feb 14, 2023 19:48
[2023-02-14] MEDS ORDERED: DILT-27 PO (09:51)
[2023-02-14] MEDS: DOCUSATE SODIUM 100 MG CAPSULE PO SCH (09:51)
[2023-02-14] MEDS: ENOXAPARIN 80 MG/0.8 ML SYRINGE SC SCH (09:51)
[2023-02-14] MEDS ORDERED: METO50TA15 PO (09:51)
[2023-02-14] MEDS ORDERED: APIX5TAB PO (09:51)
[2023-02-14] MEDS ORDERED: APIXABAN 5 MG TABLET PO SCH (21:00)
== END 2023-02-14 12:30 | disposition home or self-care (01) | DRG 310 ==
LOC: ER FS 20:57 → ICU 23:23
PROVIDERS: ADMIT Internal Medicine; ATTEND Internal Medicine
DX: I48.91 Unspecified atrial fibrillation (principal); I48.92 Unspecified atrial flutter; I47.19 Other supraventricular tachycardia; F41.9 Anxiety disorder, unspecified; E55.9 Vitamin D deficiency, unspecified; Z91.09 Other allergy status, other than to drugs and biological substances
CPT/HCPCS: 36415; 71045; 80053; 83690; 83735; 83880; 84100; 84484; 85025; 85610; 85730; 87081; 93005; 93041; 93306